=== PATIENT | male | born 1950 | race Caucasian/White ===

== ENCOUNTER → 2020-11-23 | Outpatient (CLI) | payer OTHER | LOC: CT 09:17 | DX: M75.101 Unspecified rotator cuff tear or rupture of right shoulder, not specified as traumatic (principal) | CPT/HCPCS: 36415; 82565 ==

== ENCOUNTER → 2020-12-23 | Outpatient (CLI) | payer OTHER ==
[2020-12-23 09:05] LABS: HEMOGLOBIN 14.8 gm/dl (14.0-17.5); RED BLOOD COUNT 4.81 M/UL (4.20-5.50); WHITE BLOOD COUNT 5.4 K/UL (4.5-11.0)
== END ==
LOC: RAD 08:07
PROVIDERS: Radiology Diagnostic Radiology
DX: Z01.812 Encounter for preprocedural laboratory examination (principal); M75.121 Complete rotator cuff tear or rupture of right shoulder, not specified as traumatic
CPT/HCPCS: 36415; 85027; 85610; 85730; Q9967